=== PATIENT | male | born 1950 | race Caucasian/White ===

== ENCOUNTER → 2017-04-05 | Outpatient (CLI) | payer BC, MEDICARE ==
--- NOTE | 2017-04-05 15:52 | XR ---
EXAMINATION TYPE: XR chest 2V DATE OF EXAM: 04/05/2017 COMPARISON: Chest x-ray June 20, 2014 HISTORY: Chest pain per order. Shortness of breath per patient. TECHNIQUE: Frontal and lateral views of the chest are obtained. FINDINGS: There is no focal air space opacity, pleural effusion, or pneumothorax seen. The cardiac silhouette size is within normal limits. The osseous structures are intact. IMPRESSION: No acute cardiopulmonary process. No significant change from prior.
== END | disposition home or self-care (01) ==
LOC: RADXRMAIN 15:26
PROVIDERS: ATTEND Family Medicine
DX: R07.9 Chest pain, unspecified (principal)
CPT/HCPCS: 71046

== ENCOUNTER → 2017-05-11 | Outpatient (CLI) | payer BC, MEDICARE ==
--- NOTE | 2017-05-11 12:31 | P.STRESS ---
- Stress Test Note Stress Test Results/Findings: Exam Performed: stress test Exam Date: 05/11/17 Reason for Exam: Chest Pain, Physical Height: 5 ft 9 in Weight: 89.811 kg Protocol: Manoj Stage: 3 Duration of Exercise: 9:00 Resting Heart Rate: 68 Resting Blood Pressure: 144/85 Maximum Achieved Heart Rate: 147 Maximum Achieved Blood Pressure: 212/82 85% PMHR: 132 100% PMHR: 155 METS: 10.5 Technologist Comment: Stress Test Results/Findings: This is a 66-year-old gentleman with history of diabetes, hypercholesterolemia and family history of ischemic heart disease being evaluated for chest pain and shortness of breath. Patient and EKG showed sinus rhythm with normal ND interval, QRS duration. Blood pressure at rest is 144/85 with pulse rate of 68. Patient walked on the Manoj protocol for about 9 minutes achieving a maximum of 147 with a blood pressure 212/82. EKGs taken during and after exercise did not reveal any changes to suggest ischemia. Patient did not express any chest pain. #1. Negative stress test #2. Patient did not express any chest pain. #3. Patient's exercise capacity is good. #4. No arrhythmias are noted.
--- NOTE | 2017-05-11 13:48 | EST ---
- Stress Test Note Stress Test Results/Findings: Exam Performed: stress test Exam Date: 05/11/17 Reason for Exam: Chest Pain, Physical Height: 5 ft 9 in Weight: 89.811 kg Protocol: Manoj Stage: 3 Duration of Exercise: 9:00 Resting Heart Rate: 68 Resting Blood Pressure: 144/85 Maximum Achieved Heart Rate: 147 Maximum Achieved Blood Pressure: 212/82 85% PMHR: 132 100% PMHR: 155 METS: 10.5 Technologist Comment: Stress Test Results/Findings: This is a 66-year-old gentleman with history of diabetes, hypercholesterolemia and family history of ischemic heart disease being evaluated for chest pain and shortness of breath. Patient and EKG showed sinus rhythm with normal LA interval, QRS duration. Blood pressure at rest is 144/85 with pulse rate of 68. Patient walked on the Manoj protocol for about 9 minutes achieving a maximum of 147 with a blood pressure 212/82. EKGs taken during and after exercise did not reveal any changes to suggest ischemia. Patient did not express any chest pain. #1. Negative stress test #2. Patient did not express any chest pain. #3. Patient's exercise capacity is good. #4. No arrhythmias are noted. MTDD
== END | disposition home or self-care (01) ==
LOC: RADECHMAIN 07:51
PROVIDERS: ATTEND Family Medicine
DX: R07.89 Other chest pain (principal)
CPT/HCPCS: 93017; 93306

== ENCOUNTER 2017-07-31 00:46 | Emergency (ER) | payer BC, MEDICARE ==
[2017-07-31 01:07] VITALS: BP 169/80; PULSE 75; RESP 18; TEMP 98.3
[2017-07-31] MEDS ORDERED: PROPARACAINE 0.5% OPHTH DROPS 15 ML BTL RIGHT EYE STA (01:53)
--- NOTE | 2017-07-31 02:25 | ED ---
Eye Problem HPI - General Chief complaint: Eye Problems Stated complaint: Eye Problem Time Seen by Provider: 07/31/17 01:30 Source: patient Mode of arrival: ambulatory Limitations: no limitations - History of Present Illness Initial comments: 67-year-old male patient presents to the emergency department today for evaluation of blurred vision and floaters to the right eye. Patient states that symptoms started approximately one week ago. He states that he has trouble focusing with the right eye however he can see up close without difficulty. Patient states that he has noticed a round black floater in his vision, states that it grows and shrinks occasionally. He denies any curtain like visual disturbance or flashes of light. He states that the eye does feel gritty and like he might have something in it. States that he was working with a chemical approximately a week ago that was in a fogging machine. He is unsure if this might be exhibiting to his symptoms. He denies any headaches, eye pain or pressure. Denies any fevers or chills. Denies any drainage from the eye. He does wear glasses but denies any use of contact lenses. Patient denies any recent rash, shortness breath, chest pain, abdominal pain, nausea, vomiting, diarrhea, constipation, back pain, numbness, tingling, dizziness, weakness, hematuria, dysuria, urinary urgency, urinary frequency, or any other complaints. - Related Data Allergies Allergy/AdvReac Type Severity Reaction Status Date / Time No Known Allergies Allergy Verified 07/31/17 01:07 Review of Systems ROS Statement: Those systems with pertinent positive or pertinent negative responses have been documented in the HPI. ROS Other: All systems not noted in ROS Statement are negative. Past Medical History Past Medical History: Diabetes Mellitus, Hyperlipidemia History of Any Multi-Drug Resistant Organisms: None Reported Past Surgical History: Hernia Repair, Tonsillectomy Past Psychological History: No Psychological Hx Reported Smoking Status: Former smoker Past Alcohol Use History: Daily Past Drug Use History: None Reported General Exam Limitations: no limitations General appearance: alert, in no apparent distress, other Eye exam: Present: normal appearance (This is a well-developed, well-nourished adult male patient in no acute distress. Vital signs upon presentation are temperature 98.3F, pulse 75, respirations 18, blood pressure 169/80, pulse ox 99% on room air.), PERRL, EOMI, other (Intraocular pressures were measured with a tonometer shows right eye pressures at 15-18 mmHg, left eye pressures are at 13-15 mmHg. Fluorescein stain with Wood's lamp examination was performed and showed no evidence of corneal abrasion or ulceration, no conjunctival injury. There is no hyphema. Funduscopic examination was performed with ophthalmoscope , visualized retina appeared pink, vessels intact. ). Absent: scleral icterus , conjunctival injection, periorbital swelling ENT exam: Present: normal exam, normal oropharynx, mucous membranes moist Respiratory exam: Present: normal lung sounds bilaterally. Absent: respiratory distress, wheezes, rales, rhonchi, stridor Cardiovascular Exam: Present: regular rate, normal rhythm, normal heart sounds. Absent: systolic murmur, diastolic murmur, rubs, gallop, clicks Neurological exam: Present: alert, oriented X3, CN II-XII intact Psychiatric exam: Present: normal affect, normal mood Skin exam: Present: warm, dry, intact, normal color. Absent: rash Course Vital Signs 07/31/17 01:02 Temperature 98.3 F Pulse Rate 75 Respiratory 18 Rate Blood Pressure 169/80 O2 Sat by Pulse 99 Oximetry Medical Decision Making - Medical Decision Making 67-year-old male patient presents to the emergency department today for evaluation of visual disturbance to the right eye. Physical examination was relatively unremarkable. Pressures performed with tonometer were normal for both eyes. Visual acuity was 20/40 bilaterally. Saucedo lamp examination with flouroscein stain was performed and showed no evidence of globe injury. Funduscopic examination with ophthalmoscope was performed and showed no evidence of obvious retinal abnormality given this limited examination. I did discuss findings and results with the patient. We did discuss possibility of a retinal hemorrhage versus early signs of retinal detachment. He is instructed to follow-up with building certifier for recheck as soon as possible. He will be given the name of our building certifier construction economist. Return parameters were discussed in detail. He is instructed to return here immediately for any new, worsening, or concerning symptoms. He verbalizes understanding and agrees with this plan. Disposition Clinical Impression: Visual disturbance Disposition: HOME SELF-CARE Condition: Good Instructions: Blurred Vision (ED), Visual Floaters (ED) Additional Instructions: Follow-up with ophthalmology as soon as possible. Return here immediately for any new, worsening, or concerning symptoms. Is patient prescribed a controlled substance at d/c from ED?: No Referrals: Art Medina DO [Primary Care Provider] - 1-2 days Stephon Carlson MD [STAFF PHYSICIAN] - 1-2 days Time of Disposition: 02:25
== END 2017-07-31 02:29 | disposition home or self-care (01) ==
LOC: EC 00:46
DX: H53.9 Unspecified visual disturbance (principal); Z87.891 Personal history of nicotine dependence
CPT/HCPCS: 99283

== ENCOUNTER → 2017-10-29 | Outpatient (CLI) | payer BC, MEDICARE | END | disposition home or self-care (01) | LOC: RADECHMAIN 12:38 | PROVIDERS: ATTEND Family Medicine | DX: R00.2 Palpitations (principal) | CPT/HCPCS: 93225; 93226 ==

== ENCOUNTER → 2018-07-21 | Outpatient (CLI) | payer BC, MEDICARE ==
--- NOTE | 2018-07-22 10:18 | XR ---
EXAMINATION TYPE: XR shoulder complete LT DATE OF EXAM: 07/21/2018 COMPARISON: NONE HISTORY: Pain TECHNIQUE: Shoulder examined in 3 views FINDINGS: The humeral head articulates with the glenoid. The acromio-clavicular junction is normal. No acute fractures or dislocations are evident. A follow up study can be performed 7-10 days from acute trauma for continued pain. IMPRESSION: 1. Normal three-view left Shoulder
== END | disposition home or self-care (01) ==
LOC: RADXRMAIN 17:16
PROVIDERS: ATTEND Family Medicine
DX: M25.512 Pain in left shoulder (principal)

== ENCOUNTER → 2019-01-09 | Outpatient (CLI) | payer BC, MEDICARE ==
[2019-01-09 16:30] LABS: Chol/HDL Ratio 4.69; LDL Cholesterol,Calculated 112.2 mg/dL (0.0-131.0); VLDL Calculation 16.8 mg/dL (5.00-40.00)
== END | disposition home or self-care (01) ==
LOC: LABWHC1 08:14
PROVIDERS: ATTEND Nurse Practitioner Adult Health
DX: E78.2 Mixed hyperlipidemia (principal)
CPT/HCPCS: 36415; 80061; 84450; 84460

== ENCOUNTER → 2019-01-20 | Outpatient (CLI) | payer BC, MEDICARE | END | disposition home or self-care (01) | LOC: LABWHC1 16:20 | PROVIDERS: ATTEND Internal Medicine Interventional Cardiology | DX: R00.2 Palpitations (principal) | CPT/HCPCS: 36415; 84439; 84443 ==

== ENCOUNTER → 2019-08-11 | Outpatient (CLI) | payer OTHER ==
--- NOTE | 2019-08-13 10:11 | MR ---
EXAMINATION TYPE: MR shoulder LT wo con DATE OF EXAM: 08/11/2019 COMPARISON: Plain film 07/21/2018 HISTORY: Left shoulder pain TECHNIQUE: Multiplanar, multisequence imaging of the left shoulder is performed without contrast. FINDINGS: There is motion on the exam. Rotator Cuff: Partial full-thickness tear is present anteriorly. There is thickening of the rotator c uff, increased signal compatible with tendinosis. Acromioclavicular Joint: Distal acromion shows hypertrophic spur, acromioclavicular joint shows arthr opathy change. Glenohumeral Joint: Intact Labrum: The labrum appears grossly intact given limitation of non-arthrogram study. Biceps Tendon: The long head of biceps is in normal location within bicipital groove. Bone marrow signal: No focal abnormal marrow signal is appreciated. Other: There is some fluid present in the subacromial subdeltoid bursa. IMPRESSION: There is a partial full-thickness tear of the rotator cuff anteriorly, tendinosis. Correlate for impi ngement.
== END | disposition home or self-care (01) ==
LOC: RADMRIMAIN 16:00
PROVIDERS: ATTEND Physician Assistant
DX: M75.122 Complete rotator cuff tear or rupture of left shoulder, not specified as traumatic (principal)

== ENCOUNTER 2020-03-10 14:29 | Observation (INO) | payer MEDICARE, OTHER ==
--- NOTE | 2020-03-10 14:41 | ED ---
Neuro HPI - General Chief Complaint: Neuro Symptoms/Deficit Stated Complaint: L Sided Numbness Source: patient Mode of arrival: ambulatory Limitations: no limitations - History of Present Illness Is the patient presenting with stroke symptoms?: Yes Initial Comments: Patient is a 61-year-old male past medical history of diabetes and hyperlipidemia presents emergency Department with possible strokelike symptoms. He reports that approximately 11:50 AM he began having numbness, tingling and weakness in his left upper and left lower extremity. He was having difficulties with storage manager strength. He called a family member who thought that he was having difficulties with his speech. Symptoms lasted for approximately 30 minutes before the self resolved. Patient presents the emergency department states that he has no current symptoms. No history of CVA or TIA. Patient is not on any blood thing medications. No recent head trauma. He denies any visual changes or headache. No fevers or chills. No other alleviating, precipitating or modifying factors - Related Data Home Medications: Home Medications Medication Instructions Recorded Confirmed Ascorbic Acid [Vitamin C] 2,000 mg PO DAILY 03/10/20 03/10/20 Cholecalciferol [Vitamin D3 (25 4,000 unit PO DAILY 03/10/20 03/10/20 Mcg = 1000 Iu)] Multivitamins, Thera [Multivitamin 1 tab PO DAILY 03/10/20 03/10/20 (formulary)] Rosuvastatin Calcium 5 mg PO HS 03/10/20 03/10/20 Zinc 50 mg PO DAILY 03/10/20 03/10/20 lisinopriL [Zestril] 5 mg PO DAILY 03/10/20 03/10/20 metFORMIN HCL [Glucophage Xr] 500 mg PO W/SUPPER 03/10/20 03/10/20 Allergies/Adverse Reactions: Allergies Allergy/AdvReac Type Severity Reaction Status Date / Time No Known Allergies Allergy Verified 03/10/20 15:39 Review of Systems ROS Statement: Those systems with pertinent positive or pertinent negative responses have been documented in the HPI. ROS Other: All systems not noted in ROS Statement are negative. General Exam Limitations: no limitations Stroke MDM - Lab Data Result diagrams: 03/10/20 14:56 03/10/20 14:56 Lab Results 03/10/20 03/10/20 03/10/20 Range/Units 14:40 14:56 14:56 WBC 7.9 (3.8-10.6) k/uL RBC 5.68 (4.30-5.90) m/uL Hgb 15.7 (13.0-17.5) gm/dL Hct 46.5 (39.0-53.0) % MCV 81.8 (80.0-100.0) fL MCH 27.6 (25.0-35.0) pg MCHC 33.7 (31.0-37.0) g/dL RDW 13.5 (11.5-15.5) % Plt Count 224 (150-450) k/uL MPV 7.5 Neutrophils % 64 % Lymphocytes % 22 % Monocytes % 5 % Eosinophils % 5 % Basophils % 2 % Neutrophils # 5.0 (1.3-7.7) k/uL Lymphocytes # 1.8 (1.0-4.8) k/uL Monocytes # 0.4 (0-1.0) k/uL Eosinophils # 0.4 (0-0.7) k/uL Basophils # 0.2 (0-0.2) k/uL PT 10.3 (9.0-12.0) sec INR 1.0 (<1.2) APTT 22.8 (22.0-30.0) sec Sodium (137-145) mmol/L Potassium (3.5-5.1) mmol/L Chloride (98-107) mmol/L Carbon Dioxide (22-30) mmol/L Anion Gap mmol/L BUN (9-20) mg/dL Creatinine (0.66-1.25) mg/dL Est GFR (CKD-EPI)AfAm (>60 ml/min/1.73 sqM) Est GFR (CKD-EPI)NonAf (>60 ml/min/1.73 sqM) Glucose (74-99) mg/dL POC Glucose (mg/dL) 181 H (75-99) mg/dL POC Glu Invoice Control Clerk ID Juan F Dinero Calcium (8.4-10.2) mg/dL Total Bilirubin (0.2-1.3) mg/dL AST (17-59) U/L ALT (4-49) U/L Alkaline Phosphatase (38-126) U/L Troponin I (0.000-0.034) ng/mL Total Protein (6.3-8.2) g/dL Albumin (3.5-5.0) g/dL 03/10/20 03/10/20 Range/Units 14:56 14:56 WBC (3.8-10.6) k/uL RBC (4.30-5.90) m/uL Hgb (13.0-17.5) gm/dL Hct (39.0-53.0) % MCV (80.0-100.0) fL MCH (25.0-35.0) pg MCHC (31.0-37.0) g/dL RDW (11.5-15.5) % Plt Count (150-450) k/uL MPV Neutrophils % % Lymphocytes % % Monocytes % % Eosinophils % % Basophils % % Neutrophils # (1.3-7.7) k/uL Lymphocytes # (1.0-4.8) k/uL Monocytes # (0-1.0) k/uL Eosinophils # (0-0.7) k/uL Basophils # (0-0.2) k/uL PT (9.0-12.0) sec INR (<1.2) APTT (22.0-30.0) sec Sodium 140 (137-145) mmol/L Potassium 4.2 (3.5-5.1) mmol/L Chloride 106 (98-107) mmol/L Carbon Dioxide 25 (22-30) mmol/L Anion Gap 9 mmol/L BUN 22 H (9-20) mg/dL Creatinine 0.70 (0.66-1.25) mg/dL Est GFR (CKD-EPI)AfAm >90 (>60 ml/min/1.73 sqM) Est GFR (CKD-EPI)NonAf >90 (>60 ml/min/1.73 sqM) Glucose 178 H (74-99) mg/dL POC Glucose (mg/dL) (75-99) mg/dL POC Glu Invoice Control Clerk ID Calcium 9.5 (8.4-10.2) mg/dL Total Bilirubin 0.6 (0.2-1.3) mg/dL AST 30 (17-59) U/L ALT 31 (4-49) U/L Alkaline Phosphatase 44 (38-126) U/L Troponin I <0.012 (0.000-0.034) ng/mL Total Protein 7.4 (6.3-8.2) g/dL Albumin 4.4 (3.5-5.0) g/dL - Medical Decision Making Upon arrival patient is placed into room 2. A thorough history and physical exam was performed. NIH stroke scale is performed and demonstrates score of 0. Laboratory studies were conducted. Patient went over for CT and CT angiography of his head. Laboratory studies are reviewed and demonstrated a glucose of 178. Troponin is negative. CT of the patient's brain demonstrates mild atrophy with no acute intracranial abnormality. CT angiography demonstrates no acute stenosis. Chest x-ray demonstrates no active pulmonary disease. Patient was given an aspirin and a dose of atorvastatin. Results are discussed the patient. Did discuss diagnosis, differential treatment options. I am concerned for possible TIA therefore recommended hospital admission for neurology consultation. The patient did agree to this. Called and spoke with Dr. Anglin who agreed to admit the patient. Repetitive neurologic checks and continued to demonstrate no focal neurologic deficit. Patient remained in stable condition and was transported to the floor 03/10/20 16:30 EKG demonstrates normal sinus rhythm with a ventricular rate of 160. LA interval 16. QRS of 106. QTC of 472. Baseline artifact. No acute ST segment elevations or depressions Past Medical History Past Medical History: Diabetes Mellitus, Hyperlipidemia History of Any Multi-Drug Resistant Organisms: None Reported Past Surgical History: Hernia Repair, Tonsillectomy Past Psychological History: No Psychological Hx Reported Smoking Status: Never smoker Past Alcohol Use History: Daily Past Drug Use History: None Reported Course Vital Signs 03/10/20 03/10/20 03/10/20 14:32 14:42 14:50 Temperature 98.2 F Pulse Rate 89 84 Respiratory 20 18 Rate Blood Pressure 188/93 178/96 O2 Sat by Pulse 99 99 98 Oximetry 03/10/20 03/10/20 03/10/20 15:30 16:00 16:30 Temperature Pulse Rate 75 70 72 Respiratory 17 18 18 Rate Blood Pressure 158/85 159/90 O2 Sat by Pulse 96 98 98 Oximetry 03/10/20 03/10/20 03/10/20 17:00 17:30 18:00 Temperature Pulse Rate 66 73 Respiratory 18 20 Rate Blood Pressure 164/87 163/94 166/96 O2 Sat by Pulse 98 98 Oximetry Disposition Clinical Impression: TIA (transient ischemic attack), Weakness of left side of body Disposition: ADMITTED IP TO THIS HOSP Condition: Stable Is patient prescribed a controlled substance at d/c from ED?: No Decision to Admit Reason: Admit from EC Decision Date: 03/10/20 Decision Time: 17:00
[2020-03-10 14:44] LABS: Glucose,Whole Blood 181 mg/dL (75-99)
[2020-03-10 15:03] LABS: Basophils # (A) 0.2 k/uL (0-0.2); Basophils % (A) 2 %; Eosinophils # (A) 0.4 k/uL (0-0.7); Eosinophils % (A) 5 %; HCT 46.5 % (39.0-53.0); HGB 15.7 gm/dL (13.0-17.5); Lymphocytes # (A) 1.8 k/uL (1.0-4.8); Lymphocytes % (A) 22 %; MCH 27.6 pg (25.0-35.0); MCHC 33.7 g/dL (31.0-37.0); MCV 81.8 fL (80.0-100.0); Mean Platelet Volume 7.5; Monocytes # (A) 0.4 k/uL (0-1.0); Monocytes % (A) 5 %; Neutrophils % (A) 64 %; Platelet Count 224 k/uL (150-450); RBC 5.68 m/uL (4.30-5.90); RDW 13.5 % (11.5-15.5); WBC 7.9 k/uL (3.8-10.6)
[2020-03-10 15:12] LABS: ALT 31 U/L (4-49); AST 30 U/L (17-59); African American GFR (CKD) >90 (>60 ml/min/1.73 sqM); Albumin 4.4 g/dL (3.5-5.0); Alkaline Phosphatase 44 U/L (38-126); Anion Gap 9 mmol/L; Blood Urea Nitrogen 22 mg/dL (9-20); Calcium 9.5 mg/dL (8.4-10.2); Carbon Dioxide 25 mmol/L (22-30); Chloride 106 mmol/L (98-107); Glucose 178 mg/dL (74-99); Non-African American GFR(CKD) >90 (>60 ml/min/1.73 sqM); Partial Thromboplastin Time 22.8 sec (22.0-30.0); Potassium 4.2 mmol/L (3.5-5.1); Prothrombin Time 10.3 sec (9.0-12.0); Sodium 140 mmol/L (137-145); Total Bilirubin 0.6 mg/dL (0.2-1.3); Total Protein 7.4 g/dL (6.3-8.2)
--- NOTE | 2020-03-10 15:14 | CT ---
EXAMINATION TYPE: CT brain wo con for TPA DATE OF EXAM: 03/10/2020 COMPARISON: None HISTORY: Left side numbness CT DLP: 1140.8 mGycm Automated exposure control for dose reduction was used. Exam performed without contrast. Ventricles have normal size. There is no mass effect nor midline shift. There is no sign of intracran ial hemorrhage. There is mild cerebral atrophy. Calvarium is intact. IMPRESSION: Mild atrophy. No acute intracranial abnormality.
--- NOTE | 2020-03-10 15:34 | XR ---
EXAMINATION TYPE: XR chest 2V DATE OF EXAM: 03/10/2020 COMPARISON: 04/05/2017 HISTORY: Mental status TECHNIQUE: FINDINGS: Heart and mediastinum are normal. Lungs are clear. Diaphragm is normal. Bony thorax appears normal. There are chest leads. IMPRESSION: No active cardiopulmonary disease. Normal heart. No change.
--- NOTE | 2020-03-10 15:45 | CT ---
EXAMINATION TYPE: CT angio head neck DATE OF EXAM: 03/10/2020 COMPARISON: Left side numbness HISTORY: Left side numbness CT DLP: 519.5 mGycm Automated exposure control for dose reduction was used. CONTRAST: Performed with IV Contrast, patient injected with 65 mL of Isovue 370. Images were obtained from the aortic arch to the vertex of the brain with IV contrast and 3-D post pr ocessed images. There is normal branching pattern of the great vessels on the aortic arch. There is arterial flow in both subclavian arteries. There is arterial flow in the common internal and external carotid arteries bilaterally. The carotid artery bifurcations are widely patent. There is no evidence of any significant plaque formation. Ther e is normal-appearing vertebral arteries. There is arterial flow in the vertebrobasilar artery system . There is arterial flow in the anterior middle and posterior cerebral arteries. There is no evidence o f intracranial aneurysm or neovascularity. IMPRESSION: Negative CT angiogram of the brain. Negative CT angiogram of the neck. No evidence of any significant stenosis.
[2020-03-10] MEDS ORDERED: ASPIRIN 325 MG TAB PO STA (16:14)
[2020-03-10] MEDS ORDERED: ATORVASTATIN 40 MG TAB PO SCH (17:15)
[2020-03-10 20:09] LABS: Glucose,Whole Blood 105 mg/dL (75-99)
[2020-03-10] MEDS: ATORVASTATIN 10 MG TAB PO SCH (20:50)
[2020-03-11 00:02] LABS: Cholesterol 168 mg/dL (<200); HDL Cholesterol 41 mg/dL (40-60); LDL Cholesterol,Calculated 86 mg/dL (0-99); Triglycerides 206 mg/dL (<150)
[2020-03-11 01:19] VITALS: RESP 18
[2020-03-11] MEDS: INSULIN ASPART (NovoLOG) 100 UNIT/ML VIAL SQ SCH ×5 (05:07→20:55)
[2020-03-11 06:08] LABS: Glucose,Whole Blood 125 mg/dL (75-99)
[2020-03-11] MEDS ORDERED: lisinopriL 5 MG TAB PO SCH (09:00)
[2020-03-11] MEDS ORDERED: CHOLECALCIFEROL 1,000 UNIT TAB PO SCH (09:00)
[2020-03-11] MEDS ORDERED: ZINC SULFATE 220 MG CAP PO SCH (09:00)
[2020-03-11] MEDS ORDERED: ASCORBIC ACID 500 MG TAB PO SCH (09:00)
[2020-03-11] MEDS ORDERED: ASPIRIN 325 MG TAB PO SCH (09:00)
[2020-03-11] MEDS ORDERED: MULTIVITAMINS, THERA 1 EACH TAB PO SCH (09:00)
--- NOTE | 2020-03-11 11:17 | P.CNNES ---
History of Present Illness Consult date: 03/11/20 Requesting physician: Denice Irvin Reason for Consult: Suspected TIA History of Present Illness: Patient is a 69-year-old male came to the hospital on 03/10/2020 at 2:29 PM for left-sided numbness. Patient has history of diabetes and hyperlipidemia. Patient states that his symptoms started at 12:10 PM AM when he noticed sudden onset of numbness and tingling of the entire left side of the body including left side of the lips, left side of the face, left arm and leg. 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 He immediately went to the mirror and noticed no facial droopiness, or problem with the vision. However when he put his left hand in the pocket, was not able to tell what objects he was touching. He felt his left arm felt cold whereas the right arm was warm. No headache. He at first spoke to his girlfriend and did not have any issues with speech, although he states that he was very careful with his words, so it does not excessively alarm her. He also spoke to his son, who is a nurse, and was able to converse without any issue and he didn't notice any speech difficulty. Patient's symptoms lasted for about 30 minutes before the symptoms completely resolved. When he arrived to the ER he has no symptoms. No history of strokes or TIA. Patient not on any blood thinners. No recent head trauma. No visual change, fever or chills. CT head showed mild atrophy, no acute intracranial abnormality. Chest x-ray showed no active cardiopulmonary disease. Normal heart. CTA of head and neck negative. No evidence of any significant stenosis. EKG was normal sinus rhythm. CBC, PT/PTT, Chem-20 is normal. Patient's total cholesterol is 168, HDL 41, LDL 86 and triglycerides 206. Patient takes metformin, lisinopril, Crestor, vitamin D, zinc and multivitamins. Patient has been started on aspirin 325 mg daily. Also on Lipitor 10 mg in the hospital. Patient's last hemoglobin A1c 7.0 on 04/22/2018. TFTs normal. Patient has history of hypertension, diabetes for last couple years. Patient has history of palpitations for which she had undergone Holter monitoring for 24 hours the past and everything was normal. He has smoked 2 packs per day for 10 years, quit > 30 years ago. Review of Systems As above in detail. All other 14 point review of systems reviewed and unremarkable. No chest pain. Patient states that he has been having episodes of palpitations for quite some time. It happens almost every day. He had undergone stress test, and cardiac workup and was normal. He also had Holter monitoring for 24 hours and was reportedly normal. Past Medical History Past Medical History: Diabetes Mellitus, Hyperlipidemia, Hypertension History of Any Multi-Drug Resistant Organisms: None Reported Past Surgical History: Hernia Repair, Tonsillectomy Smoking Status: Former smoker - Past Family History Father History Unknown: Yes Medications and Allergies Home Medications Medication Instructions Recorded Confirmed Type Ascorbic Acid [Vitamin C] 2,000 mg PO DAILY 03/10/20 03/10/20 History Cholecalciferol [Vitamin D3 (25 4,000 unit PO DAILY 03/10/20 03/10/20 History Mcg = 1000 Iu)] Multivitamins, Thera [Multivitamin 1 tab PO DAILY 03/10/20 03/10/20 History (formulary)] Rosuvastatin Calcium 5 mg PO HS 03/10/20 03/10/20 History metFORMIN HCL [Glucophage Xr] 500 mg PO W/SUPPER 03/10/20 03/10/20 History Aspirin 325 mg PO DAILY #30 tab 03/11/20 Rx Zinc Sulfate [Orazinc] 220 mg PO DAILY cap 03/11/20 Rx lisinopriL [Zestril] 10 mg PO DAILY #60 tab 03/11/20 Rx Allergies Allergy/AdvReac Type Severity Reaction Status Date / Time No Known Allergies Allergy Verified 03/10/20 15:39 Physical Examination - Vital Signs Vital Signs: Vital Signs Temp Pulse Pulse Resp BP BP Pulse Ox 03/11/20 08:00 97.6 F 68 18 177/75 95 03/11/20 04:00 97.8 F 68 18 138/75 97 03/11/20 02:00 70 18 03/11/20 00:00 98.2 F 70 18 144/70 96 03/10/20 20:00 97.8 F 69 18 151/82 99 03/10/20 18:53 98.3 F 71 16 172/87 96 03/10/20 18:00 166/96 03/10/20 17:30 73 20 163/94 98 03/10/20 17:00 66 18 164/87 98 03/10/20 16:30 72 18 159/90 98 03/10/20 16:00 70 18 158/85 98 03/10/20 15:30 75 17 96 03/10/20 14:50 84 18 178/96 98 03/10/20 14:42 99 03/10/20 14:32 98.2 F 89 20 188/93 99 Intake and Output 03/10/20 03/11/20 03/11/20 22:59 06:59 14:59 Other: Voiding Method Toilet Toilet # Voids 1 Weight 86.183 kg 87.7 kg On examination patient is an elderly male, in no acute distress. He is alert and awake oriented to time place and person. Speech and language functions are normal. Attention, concentration and fund of knowledge is adequate. On cranial nerve examination pupils are round and reacting to light, visual hopkins are full on confrontation, extraocular muscles are intact with no nystagmus. Face is symmetric, tongue protrudes to the midline. Palatal elevation and sensation normal, hearing and shoulder shrug normal. Facial sensation is normal. On muscle strength testing there is no pronator drift and the strength is normal in arms and legs distally and proximally. Reflexes are trace in the upper limbs, 1+ to 2 at the knees, 1 at ankles and plantars downgoing. Sensory touch is equal with no neglect on double simultaneous stimulation. No ataxia for [id number] or [id number] testing. Tone and bulk of muscles normal. Gait normal. No carotid bruit or murmur, peripheral pulses are present. Results - Laboratory Findings CBC and BMP: 03/10/20 14:56 03/10/20 14:56 Abnormal Lab Findings: Abnormal Labs 03/10/20 03/10/20 03/10/20 14:40 14:56 14:56 BUN 22 H Glucose 178 H POC Glucose (mg/dL) 181 H Triglycerides 206 H 03/10/20 03/11/20 20:08 06:06 BUN Glucose POC Glucose (mg/dL) 105 H 125 H Triglycerides Assessment and Plan Assessment: * TIA manifesting with transient numbness of the entire left side of the body including face, arm and leg. Symptoms resolved in 30 minutes. * Hypertension * Diabetes * Dyslipidemia * History of palpitations * X tobacco use Plan: * Agree with starting aspirin 325 mg daily. Patient was recommended to take full aspirin for 3 months and then may drop it down to 81 mg daily. * 2-D echo with bubble study, rule out PFO, or other embolic source. Telemetry monitoring showing sinus rhythm with sinus bradycardia with no arrhythmia. * Suggest outpatient heart monitoring for palpitations, rule out paroxysmal atrial fibrillation. Patient had a Holter monitoring performed in the past which was normal. Recommend event monitor or loop recorder. Patient has an upcoming appointment with his de icer as outpatient as well. * Continue statins. Diabetes is well controlled, with A1c 6.4, (previously was 7.0 on 04/22/2018). * Discussed with patient about further neuro imaging about MRI. As patient's symptoms were very transient (lasting for half an hour), and now the examination is completely nonfocal, the yield for MRI is very low. In any case, he would need treatment with antiplatelet medication, and strict control of vascular risk factors and rule out any cardioembolic source as recommended above. * Neurologically clear, if 2-D echo comes back normal. Addendum: 2-D echo revealed normal left ventricular size. Moderate concentric LVH. EF is 55-60%. Left atrium is mildly dilated. Contrast study was performed with 2 IV injections of 8 mL of agitated normal saline, at rest and with cough. Negative agitated saline study for PFO/ASD.
[2020-03-11 11:48] LABS: Glucose,Whole Blood 119 mg/dL (75-99)
[2020-03-11 12:41] VITALS: BP 173/84; PULSE 82; TEMP 97.9
[2020-03-11] MEDS ORDERED: lisinopriL 5 MG TAB PO STA (14:07)
[2020-03-11 14:10] LABS: Hemoglobin A1C 6.4 % (4.0-6.0)
[2020-03-11 14:13] VITALS: BMI 28.5
--- NOTE | 2020-03-11 14:30 | P.HPIM ---
History of Present Illness H&P Date: 03/11/20 History of Physical and Discharge Summary This is 69-year-old gentleman with past medical history of diabetes mellitus, hyperlipidemia, hypertension and former nicotine dependence of 2 packs per day for 10 years/crit 30 years ago, presented to the ER with left-sided numbness, tingling. Patient reports while he was bending over putting his shoes on, he began feeling more tired and developed left-sided face, lips ,arm and leg numbness, tinglingness, but maintained strength in upper and lower extremities. Looked in the mirror, reported no facial droop and his speech was clear. Reports motor strength wasn't necessarily the issue was more sensation, was able to walk and move his arm. Symptoms resolved after 30 minutes with currently no neuro deficits at this time. Denies any lightheadedness dizziness or focal deficits. No headache denies fever, chills, cough or congestion. Denies loss of taste. Brain CT reportedly mild atrophy with no acute intracranial abnormality. Chest x-ray reporting no acute cardiopulmonary disease. CT angiogram head and neck reporting negative CT angiogram of the brain and neck with no evidence of significant stenosis. EKG reportedly normal sinus rhythm, left anterior fascicular block. Troponins negative 2. Hematology, coagulation and chemistry panel unremarkable with the exception of BUN of 22. Hypertensive on admission, 172/87. Review of Systems ROS Statement: Those systems with pertinent positive or pertinent negative responses have been documented in the HPI. ROS Other: All systems not noted in ROS Statement are negative. Past Medical History Past Medical History: Diabetes Mellitus, Hyperlipidemia, Hypertension History of Any Multi-Drug Resistant Organisms: None Reported Past Surgical History: Hernia Repair, Tonsillectomy Smoking Status: Former smoker - Past Family History Father History Unknown: Yes Medications and Allergies Home Medications Medication Instructions Recorded Confirmed Type Ascorbic Acid [Vitamin C] 2,000 mg PO DAILY 03/10/20 03/10/20 History Cholecalciferol [Vitamin D3 (25 4,000 unit PO DAILY 03/10/20 03/10/20 History Mcg = 1000 Iu)] Multivitamins, Thera [Multivitamin 1 tab PO DAILY 03/10/20 03/10/20 History (formulary)] Rosuvastatin Calcium 5 mg PO HS 03/10/20 03/10/20 History metFORMIN HCL [Glucophage Xr] 500 mg PO W/SUPPER 03/10/20 03/10/20 History Aspirin 325 mg PO DAILY #30 tab 03/11/20 Rx Zinc Sulfate [Orazinc] 220 mg PO DAILY cap 03/11/20 Rx lisinopriL [Zestril] 10 mg PO DAILY #60 tab 03/11/20 Rx Allergies Allergy/AdvReac Type Severity Reaction Status Date / Time No Known Allergies Allergy Verified 03/10/20 15:39 Physical Exam Vitals: Vital Signs Temp Pulse Pulse Resp BP BP Pulse Ox 03/11/20 04:00 97.8 F 68 18 138/75 97 03/11/20 02:00 70 18 03/11/20 00:00 98.2 F 70 18 144/70 96 03/10/20 20:00 97.8 F 69 18 151/82 99 03/10/20 18:53 98.3 F 71 16 172/87 96 03/10/20 18:00 166/96 03/10/20 17:30 73 20 163/94 98 03/10/20 17:00 66 18 164/87 98 03/10/20 16:30 72 18 159/90 98 03/10/20 16:00 70 18 158/85 98 03/10/20 15:30 75 17 96 03/10/20 14:50 84 18 178/96 98 03/10/20 14:42 99 03/10/20 14:32 98.2 F 89 20 188/93 99 Intake and Output 03/10/20 03/11/20 03/11/20 22:59 06:59 14:59 Other: Voiding Method Toilet Toilet # Voids 1 Weight 86.183 kg 87.7 kg PHYSICAL EXAM: VITAL SIGNS: As above GENERAL: Sitting up at side of bed, no acute distress. Speech fluent and appropriate. HEENT: Conjunctivae normal. eyes normal. No facial droop. Tongue midline. NECK: No JVD. No thyroid enlargement. No LNs CARDIOVASCULAR: S1, S2 regular.. No murmur RESPIRATION: Breath sounds diminished in the bases. No rhonchi or crackles. No bronchial breathing. ABDOMEN: Soft, nontender . No guarding. no masses palpable. No ascites, No hepatosplenomegaly.Bowel sounds heard. LEGS: No edema. no swelling PSYCHIATRY: Alert and oriented X3, mood and affect normal. NERVOUS SYSTEM: Cranial N 2-12 grossly normal. Moves all 4 limbs. Diffuse weakness No focal deficits. Strength and sensation grossly intact. Skin: Warm and dry, no rash Joints: No active swelling. No inflammation. Lymphatic system. No LN neck axilla. Results CBC & Chem 7: 03/10/20 14:56 03/10/20 14:56 Labs: Abnormal Lab Results - Last 24 Hours (Table) 03/10/20 03/10/20 03/10/20 Range/Units 14:40 14:56 14:56 BUN 22 H (9-20) mg/dL Glucose 178 H (74-99) mg/dL POC Glucose (mg/dL) 181 H (75-99) mg/dL Triglycerides 206 H (<150) mg/dL 03/10/20 03/11/20 Range/Units 20:08 06:06 BUN (9-20) mg/dL Glucose (74-99) mg/dL POC Glucose (mg/dL) 105 H 125 H (75-99) mg/dL Triglycerides (<150) mg/dL Thrombosis Risk Factor Assmnt - Choose All That Apply Each Risk Factor Represents 2 Points: Age 61-74 years Thrombosis Risk Factor Assessment Total Risk Factor Score: 2 Thrombosis Risk Factor Assessment Level: Low Risk Assessment and Plan Assessment: Acute TIA, symptoms resolved in half an hr. Hypertension uncontrolled, MAHNAZ inhibitor increased. Diabetes mellitus, controlled, hemoglobin A1c 7 on 04/22/2018 Dyslipidemia History of nicotine dependence History of palpitations, rule out paroxymal atrial fibrillation, event monitor OP Plan: Continue on current medication regime ,monitoring and symptomatic treatment. Neurology evaluation and recommendations noted and appreciated. MAHNAZ inhibitor increased as discussed with neurology. Cleared by neurology pending normal Echo with bubble study. Continue on aspirin, statin. Patient will be discharged home with an event monitor today in a stable condition with guarded prognosis pending echo with bubble study. 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 Yo on 03/21/2020 as previously scheduled. Discharge Medication List Ascorbic Acid [Vitamin C] 2,000 mg PO DAILY 03/10/20 [History] Cholecalciferol [Vitamin D3 (25 Mcg = 1000 Iu)] 4,000 unit PO DAILY 03/10/20 [History] Multivitamins, Thera [Multivitamin (formulary)] 1 tab PO DAILY 01/10/21 [History] Rosuvastatin Calcium 5 mg PO HS 03/10/20 [History] metFORMIN HCL [Glucophage Xr] 500 mg PO W/SUPPER 03/10/20 [History] Aspirin 325 mg PO DAILY #30 tab 03/11/20 [Rx] Zinc Sulfate [Orazinc] 220 mg PO DAILY cap 03/11/20 [Rx] lisinopriL [Zestril] 10 mg PO DAILY #60 tab 03/11/20 [Rx] The impression and plan of care has been dictated as directed. : I performed a history and examination of this patient, discussed the same with the dictator. I agree with the dictator's note ,documented as a scribe. Any additional findings or plans will be noted.
[2020-03-11 16:43] LABS: Glucose,Whole Blood 100 mg/dL (75-99)
--- NOTE | 2020-03-11 18:27 | ECHOF ---
Referral Reason:TIA MEASUREMENTS -------- HEIGHT: 175.3 cm WEIGHT: 87.5 kg BP: 177/75 RVIDd: 4.5 cm (< 3.3) IVSd: 1.6 cm (0.6 - 1.1) LVIDd: 4.5 cm (3.9 - 5.3) LVPWd: 1.4 cm (0.6 - 1.1) IVSs: 1.8 cm LVIDs: 2.7 cm LVPWs: 1.7 cm LAESV Index (A-L): 31.66 ml/m Ao Diam: 2.8 cm (2.0 - 3.7) AV Cusp: 2.1 cm (1.5 - 2.6) LA Diam: 4.0 cm (2.7 - 3.8) MV EXCURSION: 22.198 mm (> 18.000) MV EF SLOPE: 117 mm/s (70 - 150) EPSS: 0.2 cm MV E Vahe: 0.71 m/s MV DecT: 247 ms MV A Vahe: 0.68 m/s MV E/A Ratio: 1.05 FINDINGS -------- Sinus rhythm. This was a technically adequate study. The left ventricular size is normal. There is moderate concentric left ventricular hypertrophy. O verall left ventricular systolic function is normal with, an EF between 55 - 60 %. The diastolic fi lling pattern is normal for the age of the patient 8.00. The right ventricle is moderately enlarged. LA is midly dilated 29-33ml/m2. The right atrium is mildly enlarged. Contrast study was performed with 2 iv injections of 8 ccs of agitated normal saline, at rest, and wi th cough. Interatrial and interventricular septum intact. Negative agitated saline study for PFO/ASD The aortic valve is trileaflet and appears structurally normal. There is no evidence of aortic regu rgitation. There is no evidence of aortic stenosis. Mild mitral regurgitation is present. Mild tricuspid regurgitation present. Unable to estimate RVSP due to inadequate TR jet spectral dop pler profile. Trace/mild (physiologic) pulmonic regurgitation. The aortic root size is normal. IVC Not well visulized. There is no pericardial effusion. CONCLUSIONS -------- 1. This was a technically adequate study. 2. The left ventricular size is normal. 3. There is moderate concentric left ventricular hypertrophy. 4. Overall left ventricular systolic function is normal with, an EF between 55 - 60 %. 5. The diastolic filling pattern is normal for the age of the patient 8.00 6. The right ventricle is moderately enlarged. 7. LA is midly dilated 29-33ml/m2. 8. The right atrium is mildly enlarged. 9. Contrast study was performed with 2 iv injections of 8 ccs of agitated normal saline, at rest, and with cough. 10. Negative agitated saline study for PFO/ASD 11. Mild mitral regurgitation is present. 12. Mild tricuspid regurgitation present. 13. Trace/mild (physiologic) pulmonic regurgitation. RECOATER: Mariana Goldberg RDCS
[2020-03-11] MEDS: ATORVASTATIN 10 MG TAB PO SCH (20:55)
[2020-03-12] MEDS ORDERED: lisinopriL 10 MG TAB PO SCH (09:00)
== END 2020-03-11 21:04 | disposition home or self-care (01) ==
LOC: EC 14:29 → 3SCARD 17:00
PROVIDERS: ADMIT Family Medicine; ATTEND Family Medicine
DX: G45.9 Transient cerebral ischemic attack, unspecified (principal); I10 Essential (primary) hypertension; E11.9 Type 2 diabetes mellitus without complications; E78.5 Hyperlipidemia, unspecified; Z87.891 Personal history of nicotine dependence; R00.2 Palpitations; Z79.84 Long term (current) use of oral hypoglycemic drugs; Z79.899 Other long term (current) drug therapy; Z79.82 Long term (current) use of aspirin
CPT/HCPCS: 99285; 36415; 93005; 93306; 97161; 97165; 92523; 80061; 80053; 84484; 85025; 85610; 85730; 83036; 71046; 70496; 70450; 70498; G0378 ×2; Q9967

== ENCOUNTER → 2021-04-25 | Outpatient (CLI) | payer OTHER | END | disposition home or self-care (01) | LOC: RADNMMAIN 11:13 | PROVIDERS: ATTEND Psychiatry & Neurology Neurology | DX: Z53.9 Procedure and treatment not carried out, unspecified reason (principal) ==

== ENCOUNTER 2023-03-05 19:23 | Emergency (ER) | payer OTHER ==
--- NOTE | 2023-03-05 20:31 | ED ---
General Adult HPI - General Source: patient, RN notes reviewed <Debby Huerta - Last Filed: 03/05/23 20:28> - General Source: RN notes reviewed, old records reviewed Mode of arrival: ambulatory Limitations: no limitations - History of Present Illness -: days(s) Location: chest Radiation: non-radiation Severity scale (1-10): 4 Consistency: constant Improves with: none Worsens with: none Associated Symptoms: chest pain Treatments Prior to Arrival: none <Esteban Dimas - Last Filed: 03/22/23 15:20> - General Stated complaint: Chest Pain Time Seen by Provider: 03/05/23 20:28 - History of Present Illness Initial comments: 72 year old male presents to the emergency department for evaluation of chest pressure and elevated blood pressure. He states that this started prior to arrival to the emergency department. He states that it has improved in severity but has not resolved. He states he took his blood pressure and it was elevated in 170s systolic. He take lisinopril 20mg daily. (Debby Huerta) This is a 72-year-old male to the emergency department for evaluation of chest pain she is having persistent chest pain although mildly improving. Patient states he's not having current chest pain mainly concern for his blood pressure. No shortness of breath. (Esteban Dimas) - Related Data Home Medications Medication Instructions Recorded Confirmed Ascorbic Acid [Vitamin C] 2,000 mg PO DAILY 03/10/20 04/10/22 Cholecalciferol [Vitamin D3 (25 4,000 unit PO DAILY 03/10/20 04/10/22 Mcg = 1000 Iu)] Multivitamins, Thera [Multivitamin 1 tab PO DAILY 03/10/20 04/10/22 (formulary)] metFORMIN HCL [Glucophage Xr] 500 mg PO W/SUPPER 03/10/20 04/10/22 Mv-Min/Vit C/Glut/Lysine/Hb124 2 each PO DAILY 06/11/20 04/10/22 [Airborne Effervescent Tablet] lisinopriL [Prinivil] 20 mg PO DAILY 06/19/20 04/10/22 Aspirin 81 mg PO DAILY 04/07/22 04/10/22 Vit C/E/Zn/Coppr/Lutein/Zeaxan 2 tab PO DAILY 04/07/22 04/10/22 [Preservision Areds 2 Chew Tab] Previous Rx's Medication Instructions Recorded amLODIPine [Norvasc] 5 mg PO DAILY #30 tab 03/06/23 Allergies Allergy/AdvReac Type Severity Reaction Status Date / Time latex Allergy Itching Verified 03/05/23 20:36 Review of Systems ROS Other: All systems not noted in ROS Statement are negative. <Debby Huerta - Last Filed: 03/05/23 20:28> ROS Other: All systems not noted in ROS Statement are negative. <Esteban Dimas - Last Filed: 03/22/23 15:20> ROS Statement: Those systems with pertinent positive or pertinent negative responses have been documented in the HPI. Past Medical History Past Medical History: CVA/TIA, Diabetes Mellitus, Hyperlipidemia, Hypertension, Osteoarthritis (OA) Additional Past Medical History / Comment(s): ,"TIA w/ lt sided numbness to arm and face-sx resoved within 30 minutes of onset",heart flutter" History of Any Multi-Drug Resistant Organisms: None Reported Past Surgical History: Hernia Repair, Tonsillectomy Past Anesthesia/Blood Transfusion Reactions: No Reported Reaction Smoking Status: Former smoker - Past Family History Father History Unknown: Yes <Debby Huerta - Last Filed: 03/05/23 20:28> General Exam <Debby Huerta - Last Filed: 03/05/23 20:28> General appearance: alert, in no apparent distress Head exam: Present: atraumatic, normocephalic, normal inspection Eye exam: Present: normal appearance, PERRL, EOMI. Absent: scleral icterus, conjunctival injection, periorbital swelling ENT exam: Present: normal exam, mucous membranes moist Neck exam: Present: normal inspection. Absent: tenderness, meningismus, lymphadenopathy Respiratory exam: Present: normal lung sounds bilaterally. Absent: respiratory distress, wheezes, rales, rhonchi, stridor Cardiovascular Exam: Present: regular rate, normal rhythm, normal heart sounds. Absent: systolic murmur, diastolic murmur, rubs, gallop, clicks GI/Abdominal exam: Present: soft, normal bowel sounds. Absent: distended, tenderness, guarding, rebound, rigid Extremities exam: Present: normal inspection, full ROM, normal capillary refill. Absent: tenderness, pedal edema, joint swelling, calf tenderness Back exam: Present: normal inspection Neurological exam: Present: alert, oriented X3, CN II-XII intact Psychiatric exam: Present: normal affect, normal mood Skin exam: Present: warm, dry, intact, normal color. Absent: rash <Esteban Dimas - Last Filed: 03/22/23 15:20> - General Exam Comments Initial Comments: Visual Physical Exam Vital signs reviewed General: Well-appearing, nontoxic, no acute distress. Head: Normocephalic, atraumatic Eyes: PERRLA, EOMI ENT: Airway patent Chest: Nonlabored breathing Skin: No visual rash, normal skin tone Neuro: Alert and oriented 3 Musculoskeletal: No gross abnormalities (Debby Huerta) Course <Esteban Dimas - Last Filed: 03/22/23 15:20> Vital Signs 03/05/23 03/05/23 03/06/23 20:36 23:50 00:39 Temperature 97.0 F L 98.0 F Pulse Rate 71 78 Respiratory 16 18 Rate Blood Pressure 150/78 172/80 O2 Sat by Pulse 98 97 Oximetry - Reevaluation(s) Reevaluation #1: Medical record is reviewed (Esteban Dimas) Reevaluation #2: Patient symptoms are improving (Esteban Dimas) Reevaluation #3: Patient informed results questions answered (Esteban Dimas) Reevaluation #4: Was pt. sent in by a medical professional or institution (, PA, CORE DRILL OPERATOR, urgent care, hospital, or custodial...) When possible be specific @ -no Did you speak to anyone other than the patient for history (EMS, parent, family, police, friend...)? What history was obtained from this source @ -no Did you review nursing and triage notes (agree or disagree)? Why? @ -agree Are old charts reviewed (outside hosp., previous admission, EMS record, old EKG, old radiological studies, urgent care reports/EKG's, custodial records)? Report findings @ -yes Differential Diagnosis (chest pain, altered mental status, abdominal pain women, abdominal pain men, vaginal bleeding, weakness, fever, dyspnea, syncope, headache, dizziness, GI bleed, back pain, seizure, CVA, palpatations, mental health, musculoskeletal)? @ -prior EKG interpreted by me (3pts min.). @ -yes X-rays interpreted by me (1pt min.). @ -yes negative for acute disease CT interpreted by me (1pt min.). @ -no U/S interpreted by me (1pt. min.). @ -no What testing was considered but not performed or refused? (CT, X-rays, U/S, labs)? Why? @ -none What meds were considered but not given or refused? Why? @ -none Did you discuss the management of the patient with other professionals (professionals i.e. Dr., PA, CORE DRILL OPERATOR, lab, RT, psych nurse, dialysis social worker, mosaicist, teacher, targeting acquisition officer, rehabilitation caseworker)? Give summary @ -no Was smoking cessation discussed for >3mins.? @ -no Were there social determinants of health that impacted care today? How? (Homelessness, low income, unemployed, alcoholism, drug addiction, transportation, low edu. Level, literacy, decrease access to med. care, [facility], rehab)? @ -none Was there de-escalation of care discussed even if they declined (Discuss DNR or withdrawal of care, Hospice)? DNR status @ -no What co-morbidities impacted this encounter? (DM, HTN, Smoking, COPD, CAD, Cancer, CVA, ARF, Chemo, Hep., AIDS, mental health diagnosis, sleep apnea, morbid obesity)? @ -none Was patient admitted / discharged? Hospital course, mention meds given and route, prescriptions, significant lab abnormalities, going to OR and other pertinent info. @ - 72 male to the emergency department for evaluation of chest pain chest pain with recurrent hypertension worsening hypertension. Patient will be increased on blood pressure medication at home and can be discharged Discharge Was critical care preformed (if so, how long)? @ -no Undiagnosed new problem with uncertain prognosis? @ -no Drug Therapy requiring intensive monitoring for toxicity (Heparin, Nitro, Insulin, Cardizem)? @ -no Were any procedures done? @ -no Diagnosis/symptom? @ -Chest pain and hypertension Acute, or Chronic, or Acute on Chronic? @ -Acute Uncomplicated (without systemic symptoms) or Complicated (systemic symptoms)? @ -Complicated Side effects of treatment? @ -no Exacerbation, Progression, or Severe Exacerbation? @ -exacerbation Poses a threat to life or bodily function? How? (Chest pain, [place], [place], pneumonia, PE, COPD, DKA, ARF, appy, cholecystitis, CVA, Diverticulitis, Homicidal, Suicidal, threat to staff... and all critical care pts) @ -yes significant chest pain and hypertension (Esteban Dimas) Reevaluation #5: Differential Chest Pain: Stable Angina, Unstable Angina, STEMI, NSTEMI Aortic Dissection, Pneumothorax, Musculoskeletal, Esophageal Spasm GERD, Cholecystitis, Pancreatitis, Zoster, this is not meant to be an all-inclusive list. (Esteban Dimas) EKG Findings - EKG Comments: EKG Findings:: EKG sinus 69 MN 136 QRS 114 QTc 434 - EKG Results: EKG: interpreted by ERMD <Esteban Dimas - Last Filed: 03/22/23 15:20> Medical Decision Making <Debby Huerta - Last Filed: 03/05/23 20:28> - Lab Data Result diagrams: 03/05/23 19:43 03/05/23 19:43 - EKG Data -: EKG Interpreted by Ok - Radiology Data Radiology results: report reviewed (Chest x-rays negative for acute disease), image reviewed <Esteban Dimas - Last Filed: 03/22/23 15:20> - Medical Decision Making Quick note preformed by Debby Huerta PA-C (Debby Huerta) 72 male to the emergency department for evaluation of chest pain chest pain with recurrent hypertension worsening hypertension. Patient will be increased on blood pressure medication at home and can be discharged (Esteban Dimas) - Lab Data Lab Results 03/05/23 03/05/23 03/05/23 Range/Units 19:43 19:43 19:43 WBC 8.4 (3.8-10.6) k/uL RBC 5.50 (4.30-5.90) m/uL Hgb 15.2 (13.0-17.5) gm/dL Hct 46.2 (39.0-53.0) % MCV 84.1 (80.0-100.0) fL MCH 27.6 (25.0-35.0) pg MCHC 32.8 (31.0-37.0) g/dL RDW 13.6 (11.5-15.5) % Plt Count 212 (150-450) k/uL MPV 8.0 Neutrophils % 55 % Lymphocytes % 31 % Monocytes % 6 % Eosinophils % 6 % Basophils % 1 % Neutrophils # 4.6 (1.3-7.7) k/uL Lymphocytes # 2.6 (1.0-4.8) k/uL Monocytes # 0.5 (0-1.0) k/uL Eosinophils # 0.5 (0-0.7) k/uL Basophils # 0.1 (0-0.2) k/uL PT 10.1 (10.0-12.5) sec INR 0.9 (<1.2) APTT 24.9 (22.0-30.0) sec Sodium 143 (137-145) mmol/L Potassium 4.2 (3.5-5.1) mmol/L Chloride 102 (98-107) mmol/L Carbon Dioxide 29 (22-30) mmol/L Anion Gap 12 mmol/L BUN 22 H (9-20) mg/dL Creatinine 0.69 (0.66-1.25) mg/dL Est GFR (CKD-EPI)AfAm >90 (>60 ml/min/1.73 sqM) Est GFR (CKD-EPI)NonAf >90 (>60 ml/min/1.73 sqM) Glucose 105 H (74-99) mg/dL Calcium 9.5 (8.4-10.2) mg/dL Magnesium 2.2 (1.6-2.3) mg/dL Total Bilirubin 0.5 (0.2-1.3) mg/dL AST 28 (17-59) U/L ALT 32 (4-49) U/L Alkaline Phosphatase 58 (38-126) U/L Troponin I (0.000-0.034) ng/mL Total Protein 7.6 (6.3-8.2) g/dL Albumin 4.6 (3.5-5.0) g/dL 03/05/23 Range/Units 19:43 WBC (3.8-10.6) k/uL RBC (4.30-5.90) m/uL Hgb (13.0-17.5) gm/dL Hct (39.0-53.0) % MCV (80.0-100.0) fL MCH (25.0-35.0) pg MCHC (31.0-37.0) g/dL RDW (11.5-15.5) % Plt Count (150-450) k/uL MPV Neutrophils % % Lymphocytes % % Monocytes % % Eosinophils % % Basophils % % Neutrophils # (1.3-7.7) k/uL Lymphocytes # (1.0-4.8) k/uL Monocytes # (0-1.0) k/uL Eosinophils # (0-0.7) k/uL Basophils # (0-0.2) k/uL PT (10.0-12.5) sec INR (<1.2) APTT (22.0-30.0) sec Sodium (137-145) mmol/L Potassium (3.5-5.1) mmol/L Chloride (98-107) mmol/L Carbon Dioxide (22-30) mmol/L Anion Gap mmol/L BUN (9-20) mg/dL Creatinine (0.66-1.25) mg/dL Est GFR (CKD-EPI)AfAm (>60 ml/min/1.73 sqM) Est GFR (CKD-EPI)NonAf (>60 ml/min/1.73 sqM) Glucose (74-99) mg/dL Calcium (8.4-10.2) mg/dL Magnesium (1.6-2.3) mg/dL Total Bilirubin (0.2-1.3) mg/dL AST (17-59) U/L ALT (4-49) U/L Alkaline Phosphatase (38-126) U/L Troponin I <0.012 (0.000-0.034) ng/mL Total Protein (6.3-8.2) g/dL Albumin (3.5-5.0) g/dL Disposition <Debby Huerta - Last Filed: 03/05/23 20:28> Is patient prescribed a controlled substance at d/c from ED?: No Time of Disposition: 00:05 <Esteban Dimas - Last Filed: 03/22/23 15:20> Clinical Impression: Chest pain, Hypertension Disposition: HOME SELF-CARE Condition: Good Instructions (If sedation given, give patient instructions): Chest Pain (ED), Hypertension (ED) Prescriptions: amLODIPine [Norvasc] 5 mg PO DAILY #30 tab Referrals: Art Medina DO [Primary Care Provider] - 1-2 days
--- NOTE | 2023-03-05 21:39 | XR ---
EXAMINATION TYPE: XR chest 2V DATE OF EXAM: 03/05/2023 9:28 PM CLINICAL INDICATION:Male, 72 years old with history of Chest Pain; [facility] COMPARISON: Chest radiographs from 03/10/2020. TECHNIQUE: XR chest 2V Frontal and lateral views of the chest. FINDINGS: Lungs/Pleura: There is flattening of the diaphragm with increased lucency of the lungs. No evidence o f pneumothorax, pleural effusion or focal consolidation. Pulmonary vascularity: Unremarkable. Heart/mediastinum: Cardiomediastinal silhouette is unremarkable. Musculoskeletal: No acute osseous pathology. IMPRESSION: 1. No acute cardiopulmonary disease process. 2. COPD changes.
[2023-03-05 22:00] LABS: Basophils # (A) 0.1 k/uL (0-0.2); Basophils % (A) 1 %; Eosinophils # (A) 0.5 k/uL (0-0.7); Eosinophils % (A) 6 %; HCT 46.2 % (39.0-53.0); HGB 15.2 gm/dL (13.0-17.5); Lymphocytes # (A) 2.6 k/uL (1.0-4.8); Lymphocytes % (A) 31 %; MCH 27.6 pg (25.0-35.0); MCHC 32.8 g/dL (31.0-37.0); MCV 84.1 fL (80.0-100.0); Monocytes # (A) 0.5 k/uL (0-1.0); Monocytes % (A) 6 %; Neutrophils # (A) 4.6 k/uL (1.3-7.7); Neutrophils % (A) 55 %; Platelet Count 212 k/uL (150-450); RDW 13.6 % (11.5-15.5); WBC 8.4 k/uL (3.8-10.6)
[2023-03-05 22:08] LABS: ALT 32 U/L (4-49); AST 28 U/L (17-59); African American GFR (CKD) >90 (>60 ml/min/1.73 sqM); Albumin 4.6 g/dL (3.5-5.0); Alkaline Phosphatase 58 U/L (38-126); Anion Gap 12 mmol/L; Blood Urea Nitrogen 22 mg/dL (9-20); Calcium 9.5 mg/dL (8.4-10.2); Carbon Dioxide 29 mmol/L (22-30); Chloride 102 mmol/L (98-107); Glucose 105 mg/dL (74-99); Magnesium 2.2 mg/dL (1.6-2.3); Non-African American GFR(CKD) >90 (>60 ml/min/1.73 sqM); Potassium 4.2 mmol/L (3.5-5.1); Sodium 143 mmol/L (137-145); Total Bilirubin 0.5 mg/dL (0.2-1.3); Total Protein 7.6 g/dL (6.3-8.2)
[2023-03-05 22:10] LABS: INR 0.9 (<1.2); Partial Thromboplastin Time 24.9 sec (22.0-30.0); Prothrombin Time 10.1 sec (10.0-12.5)
[2023-03-06] MEDS ORDERED: amLODIPine 5 MG TAB PO STA (00:18)
[2023-03-06 00:44] VITALS: BP 172/80; PULSE 78; RESP 18
[2023-03-06 00:45] VITALS: TEMP 98
== END 2023-03-06 00:43 | disposition home or self-care (01) ==
LOC: EC 19:23
DX: I10 Essential (primary) hypertension (principal); R07.89 Other chest pain; E11.9 Type 2 diabetes mellitus without complications; Z79.84 Long term (current) use of oral hypoglycemic drugs; Z79.82 Long term (current) use of aspirin; Z79.899 Other long term (current) drug therapy; Z91.040 Latex allergy status; Z87.891 Personal history of nicotine dependence; Z86.73 Personal history of transient ischemic attack (TIA), and cerebral infarction without residual deficits
CPT/HCPCS: 36415; 71046; 80053; 83735; 84484; 85025; 85610; 85730; 93005; 99285

== ENCOUNTER → 2023-03-30 | Outpatient (CLI) | payer OTHER ==
--- NOTE | 2023-03-30 12:32 | NM ---
EXAMINATION TYPE: NM stress cardiolite complete DATE OF EXAM: 03/30/2023 COMPARISON: NONE CLINICAL INDICATION: Male, 72 years old with history of R07.9 chest pain; TECHNIQUE: After the intravenous administration of 9.23 mCi Tc 99m Sestamibi - Rest images obtained 45 minutes post injection. The patient exercised using a PARVEZ protocol and 1 minute prior to peak exercise was injected with 26.6 mCi Tc 99m Sestamibi - Stress images obtained 20 minutes post injecti on. FINDINGS: Targeted heart rate was achieved during performance of the study. Review of stress and rest SPECT olivier ges demonstrates no distinct reversible perfusion abnormality. Fixed defect noted at the cardiac ape x and apical septal region. Gated analysis shows normal wall motion with an estimated left ventricula r ejection fraction of 57 %. IMPRESSION: No scintigraphic evidence for reversible ischemia
--- NOTE | 2023-03-30 12:48 | CA ---
Exercise Stress Test Report Name: Jagjit Mcgovern Exam Date: 03/30/2023 11:25 Exam Location: [facility] Ht (in): 69 Wt (lb): 188 BSA: 2.01 Ordering Phys: Marquise Caballero DO Referring Phys: Mindy Youngblood Technologist: Jannette Mena Age: 72 Gender: M : 1950 Procedure CPT: Indications: R07.9 CHEST PAIN ICD-10 Codes: Patient History: CP, HTN, DM ,CVA, FAMILY HX Medications: METFORMIN, AMLODIPINE, BENZOPRIL Meds past 24 hrs: Pretest Chest Pain: STRESS TEST Manoj Protocol Exercise Duration (min:sec): 06:[address] Depressions (mm): Angina Score: Meade Score: Resting HR (bpm): 78 Peak HR (bpm): 140 Resting BP (mmHg): 146 / 75 Peak BP (mmHg): 194 / 85 MPHR: 149 Target HR: 127 % MPHR: 94 METS: 8.3 Total Dose: Peak Dose: Atropine: Double Product: 93287 BP Response: Stress Termination: Reached target heart rate Stress Symptoms: Stress Summary: ECG ANALYSIS Resting ECG: Normal sinus rhythm, heart rate 78, left axis deviation Stress EC mm upsloping ST depressions at peak stress which can be normal physiological response. There were frequent PVCs but no sustained arrhythmias during peak stress level. CONCLUSIONS Fair excess tolerance for patient's age achieving 8.3 METS Normal hemodynamic and clinical response to exercise Probably normal treadmill ECG stress test Dr Duncan Hood (Electronically Signed) Final Date: 30 March 2023 12:47
== END | disposition home or self-care (01) ==
LOC: RADNMMAIN 09:02
PROVIDERS: ATTEND Family Medicine
DX: R07.9 Chest pain, unspecified (principal); I10 Essential (primary) hypertension; E11.9 Type 2 diabetes mellitus without complications
CPT/HCPCS: 93017; 78452; A9500

== ENCOUNTER → 2024-09-28 | Outpatient (CLI) | payer OTHER ==
[2024-09-28 15:35] VITALS: BP 142/73; PULSE 64; RESP 16; TEMP 98.3
--- NOTE | 2024-09-28 16:06 | P.SLEEP ---
History of Present Illness DATE: 09/28/2024 CONSULTATION/NEW PATIENT EVALUATION HISTORY OF PRESENT ILLNESS/SLEEP-WAKE EVALUATION: 74-year-old gentleman had b een evaluated in the sleep center for possible obstructive sleep apnea hypopnea syndrome. SLEEP SCHEDULE: Usually sleep schedule from 9:30 PM to 4 AM on weekdays and from 11:30 pm until 9 am on weekend. FALLING ASLEEP: Usually no significant problems with falling asleep. DURING SLEEP: Patient wakes up from sleep twice with 1 episode of nocturia. Positive history of palpitations episode. No history of hypnogogical hallucinations, sleep paralysis, or cataplexy. DURING THE DAY/WAKE STATE: In the morning patient wake up tired. Rosalie sleepiness scale is significantly increased to 16. Patient may take up to 2 naps during the day. PAST MEDICAL HISTORY: Atrial flutter episode, hypertension, diabetes mellitus. PAST SURGICAL HISTORY: Tonsillectomy, hernia repair. MEDICATIONS: Please see below. SOCIAL HISTORY: Please see below. FAMILY HISTORY: Please see below. REVIEW OF SYSTEMS: Snoring, awakenings from sleep. No fevers. No double vision. No recent chest pain. No shortness of breath. No abdominal pain. No bleeding episodes. No blood in urine. No seizure episodes. PHYSICAL EXAMINATION: GENERAL: A pleasant patient without any distress. VITAL SIGNS: Please see below, weight 182 pounds, BMI 27.6. HEENT: PERRLA, EOMI. Evaluation of oropharynx showed tongue protrudes midline, low position of soft palate Mallampati 3. NECK: Supple. No JVD. Thyroid is not palpable. 17 inches in circumference. LUNGS: Clear to percussion and to auscultation. Good air exchange. No wheezing or rhonchi. HEART: S1, S2 regular. No murmurs, gallops or rubs. ABDOMEN: Soft and nontender. Bowel sounds are present. No organomegaly appreciated. EXTREMITIES: No clubbing or cyanosis. UI SOFTWARE DEVELOPER: Awake, alert, and oriented x3. Cranial nerves 2 to 7 intact. There is no fasciculation or atrophy noted. No focal deficits observed. ASSESSMENT: 1. Snoring, awakenings from sleep, low position of soft palate Mallampati 3, wide neck 17 inches in circumference, significant sleepiness with high Rosalie Sleepiness Scale 16. Obstructive sleep apnea hypopnea syndrome. 2. History of episode of atrial flutter. 3. Hypertension. 4. Diabetes mellitus. 5 status post tonsillectomy. 6 . Status post hernia repair. PLAN: 1. Polysomnography for evaluation of patient's breathing during sleep. 2. Following plan after reading sleep study. 3. Preferable position during sleep on the side. 4. No driving if patient feels any sleepiness. Patient is aware of civil and criminal liability for unsafe driving. 5. Sleep hygiene with regular sleep time for at least 7.5-8 hours. 6. Watching weight. Thank you very much for referring this patient for consultation. Sincerely, Dakota Torres MD, PhD, FAASM. Diplomat of [place] [employer], Sleep Medicine Board by [place] [employer] Associate of [facility] [place] Past Medical History Past Medical History: CVA/TIA, Diabetes Mellitus, Hyperlipidemia, Hypertension, Osteoarthritis (OA) Additional Past Medical History / Comment(s): ,"TIA w/ lt sided numbness to arm and face-sx resoved within 30 minutes of onset",heart flutter" History of Any Multi-Drug Resistant Organisms: None Reported Past Surgical History: Hernia Repair, Tonsillectomy Past Anesthesia/Blood Transfusion Reactions: No Reported Reaction Past Psychological History: No Psychological Hx Reported Smoking Status: Former smoker Past Alcohol Use History: None Reported Additional Past Alcohol Use History / Comment(s): quit 30yrs ago, beer or whiskey daily, 1-2 per day Past Drug Use History: None Reported - Past Family History Father History Unknown: Yes Family Medical History: Cancer, Coronary Artery Disease (CAD), Diabetes Mellitus, Hypertension, Osteoarthritis (OA) Additional Family Medical History / Comment(s): sinus headaches, snoring, ulcers Medications and Allergies Home Medications Medication Instructions Recorded Confirmed Type Ascorbic Acid [Vitamin C] 2,000 mg PO DAILY 03/10/20 04/10/22 History Cholecalciferol [Vitamin D3 (25 4,000 unit PO DAILY 03/10/20 04/10/22 History Mcg = 1000 Iu)] Multivitamins, Thera [Multivitamin 1 tab PO DAILY 03/10/20 04/10/22 History (formulary)] metFORMIN HCL [Glucophage Xr] 500 mg PO W/SUPPER 03/10/20 04/10/22 History Mv-Min/Vit C/Glut/Lysine/Hb124 2 each PO DAILY 06/11/20 04/10/22 History [Airborne Effervescent Tablet] lisinopriL [Prinivil] 20 mg PO DAILY 06/19/20 04/10/22 History Aspirin 81 mg PO DAILY 04/07/22 04/10/22 History Vit C/E/Zn/Coppr/Lutein/Zeaxan 2 tab PO DAILY 04/07/22 04/10/22 History [Preservision Areds 2 Chew Tab] amLODIPine [Norvasc] 5 mg PO DAILY #30 tab 03/06/23 Rx Allergies Allergy/AdvReac Type Severity Reaction Status Date / Time latex Allergy Itching Verified 03/05/23 20:36 Physical Exam Vitals: Vital Signs Temp Pulse Resp BP Pulse Ox 09/28/24 15:33 98.3 F 64 16 142/73 95 Sleep Note - Sleep Data ESS Total: 16 - Sleep Note Sleep Note: Temperature: 98.3 F Pulse Rate: 64 Respiratory Rate: 16 Blood Pressure: 142/73 SpO2: 95 Height: Weight: BMI: Neck Circumference: 17
== END ==
LOC: 3 N SLEEP 15:15
PROVIDERS: ATTEND Internal Medicine
DX: G47.33 Obstructive sleep apnea (adult) (pediatric) (principal); I10 Essential (primary) hypertension; E11.9 Type 2 diabetes mellitus without complications; Z90.89 Acquired absence of other organs; Z98.890 Other specified postprocedural states; Z86.79 Personal history of other diseases of the circulatory system; Z91.040 Latex allergy status; Z87.891 Personal history of nicotine dependence
CPT/HCPCS: 99211